=== PATIENT | female | born 2000 | race Caucasian/White ===

== ENCOUNTER 2021-07-23 17:35 | Emergency (ER) | payer OTHER ==
[~2021-07-23] VITALS: Ht 162.6 cm; Wt 59.1 kg
[2021-07-23 18:26] VITALS: BP 128/76
[2021-07-23 18:37] LABS: COVID AG,FIA SOURCE NASOPHARYNGEAL
== END 2021-07-23 19:47 | disposition home or self-care (01) ==
LOC: EMS 17:37
DX: Z20.822 Contact with and (suspected) exposure to COVID-19 (principal)
CPT/HCPCS: 99283